=== PATIENT | female | born 1970 | race Caucasian/White ===

== ENCOUNTER 2020-03-25 09:39 | Outpatient (CLI) | payer BC, SELFPAY ==
--- NOTE | ~2020-03-25 | MM_ITS ---
EXAMINATION: MM screening tanya BI w blayne HISTORY: Screening TECHNIQUE: Craniocaudal and mediolateral oblique 3-D tomosynthesis images were obtained and synthetic 2-D images were generated. CAD analysis was submitted and interpreted. COMPARISON: Comparison to multiple prior studies sequentially, with oldest reviewed study dated 01/10. BREAST PARENCHYMAL COMPOSITION: There are scattered areas of fibroglandular density. FINDINGS: There is no evidence of suspicious mass, calcification, or architectural distortion to sugg est malignancy in either breast. There has been no suspicious interval change. IMPRESSION: 1. No mammographic evidence of malignancy. 2. Recommend routine screening mammography in one year. BI-RADS Category 1: Negative Reviewed, dictated and finalized at location A. S DEVELOPMENT COORDINATOR
== END 2020-03-25 09:40 | disposition home or self-care (01) ==
LOC: ANHIMG 09:45
PROVIDERS: PCP Internal Medicine Gastroenterology; Visit Provider Obstetrics & Gynecology
DX: Z12.31 Encounter for screening mammogram for malignant neoplasm of breast (principal)
CPT/HCPCS: 77063; 77067

== ENCOUNTER 2021-05-10 09:12 | Outpatient (CLI) | payer OTHER, SELFPAY ==
--- NOTE | ~2021-05-10 | MM_ITS ---
EXAMINATION: MM screening [facility] BI w blayne HISTORY: Screening mammogram TECHNIQUE: Craniocaudal and mediolateral oblique 3-D tomosynthesis images were obtained and synthetic 2-D images were generated. CAD analysis was submitted and interpreted. COMPARISON: 03/25/2020, 08/30/2017, 08/24/2017, 07/18/2016 BREAST PARENCHYMAL COMPOSITION: The breasts are heterogeneously dense, which may obscure small masses . FINDINGS: There is no evidence of suspicious mass, calcification, or architectural distortion to sugg est malignancy in either breast. There has been no suspicious interval change. IMPRESSION: 1. No mammographic evidence of malignancy. 2. Recommend routine screening mammography in one year. BI-RADS Category 1: Negative Reviewed, dictated and finalized at location A. TECHNICAL LEAD
== END 2021-05-10 09:13 | disposition home or self-care (01) ==
PROVIDERS: PCP Internal Medicine Gastroenterology; Visit Provider Obstetrics & Gynecology
DX: Z12.31 Encounter for screening mammogram for malignant neoplasm of breast (principal)
CPT/HCPCS: 77063; 77067

== ENCOUNTER 2023-02-08 13:09 | Outpatient (CLI) | payer MEDICARE, MEDICAID, SELFPAY ==
--- NOTE | ~2023-02-08 | XR_ITS ---
Thoracic spine: Clinical Indication: Back pain, radiculopathy AP and lateral views were performed. No fracture is seen. There is normal alignment of the vertebrae. The intervertebral disc spaces appe ar normal. Paravertebral soft tissues appear normal. Impression: No significant abnormalities noted. Reviewed, dictated and finalized at [facility]. IAC REHABILITATION SPECIALIST Impression: No significant abnormalities noted.
--- NOTE | ~2023-02-08 | XR_ITS ---
Lumbosacral Spine: AP and lateral views Clinical History: Pain Findings: The normal lordotic curve is maintained. 5 mm anterolisthesis of L4 over L5 present. There are mild facet joint degenerative change at the lower lumbar spine. The sacroiliac joints are normall y outlined. Impression: 5 mm anterolisthesis of L4 over L5. Mild facet arthropathy of the lower lumbar spine. Reviewed, dictated and finalized at location M. DIAL PROJECT MANAGER Impression: 5 mm anterolisthesis of L4 over L5. Mild facet arthropathy of the lower lumbar spine.
--- NOTE | ~2023-02-08 | XR_ITS ---
EXAMINATION: XR shoulder RT min 2V DATE: 02/08/2023 14:32 INDICATION: Right shoulder pain. TECHNIQUE: 4 views of right shoulder were obtained. COMPARISON: None. FINDINGS: Bone alignment is normal. No fracture. There is mild osteoarthritis of glenohumeral joint a nd acromioclavicular joint. IMPRESSION: 1. Mild polyarticular osteoarthritis. Reviewed, dictated and finalized at location A. DOG TRAINER
--- NOTE | ~2023-02-08 | XR_ITS ---
EXAMINATION: XR shoulder LT min 2V DATE: 02/08/2023 14:32 INDICATION: Left shoulder pain. TECHNIQUE: 4 views of left shoulder were obtained. COMPARISON: None. FINDINGS: Bone alignment is normal. No fracture. There is mild osteoarthritis of glenohumeral joint a nd acromioclavicular joint. IMPRESSION: 1. Mild polyarticular osteoarthritis. Reviewed, dictated and finalized at location A. ER TIRE AND TUBES SUPERVISOR
--- NOTE | ~2023-02-08 | XR_ITS ---
Cervical Spine: AP, lateral, open-mouth views Clinical History: Pain Findings: The normal lordotic curve is maintained. The vertebral bodies and posterior elements appea r intact. The intervertebral disc spaces are well maintained. Pre-vertebral soft tissues are unremar kable. Impression: No significant abnormality is seen. Reviewed, dictated and finalized at [facility]. [employer] SERVICE TEAM MEMBER Impression: No significant abnormality is seen.
== END 2023-02-08 13:10 | disposition home or self-care (01) ==
PROVIDERS: PCP Internal Medicine Gastroenterology; Visit Provider Pain Medicine Interventional Pain Medicine
DX: M54.16 Radiculopathy, lumbar region (principal); M54.14 Radiculopathy, thoracic region; M54.12 Radiculopathy, cervical region; M19.012 Primary osteoarthritis, left shoulder; M19.011 Primary osteoarthritis, right shoulder
CPT/HCPCS: 72050; 72072; 72100; 73030

== ENCOUNTER 2023-03-04 10:32 | Outpatient (CLI) | payer MEDICARE, MEDICAID, SELFPAY ==
--- NOTE | ~2023-03-04 | MR_ITS ---
EXAMINATION: MR shoulder LT wo con DATE: 03/04/2023 11:19 INDICATION: Left shoulder pain. TECHNIQUE: Magnetic resonance imaging (MRI) of the left shoulder was performed without intravenous co ntrast. Sequences included axial PD-weighted FS FSE, coronal oblique PD-weighted FS FSE and T2-weight ed FS FSE, and sagittal oblique T2-weighted FS FSE and T1-weighted FSE. COMPARISON: Left shoulder radiographs 02/08/2023 FINDINGS: Coracoacromial arch: The acromion undersurface is curved in morphology (type II). There is moderate acromioclavicular join t osteoarthritis. There is mild subacromial/subdeltoid bursitis. Rotator cuff: There is mild supraspinatus and infraspinatus tendinopathy. Teres minor tendon is normal. Subscapular is tendon is normal. There is no asymmetric fatty atrophy of the rotator cuff muscle bellies. Biceps tendon and glenoid labrum: Biceps tendon is in bicipital groove. Intra-articular biceps tendon is normal. The glenoid labrum is normal. Fluid: There is a small glenohumeral joint effusion. Bones/cartilage: There is cartilage surface irregularity of glenoid and humeral head. IMPRESSION: 1. Mild rotator cuff tendinopathy. No tear. 2. Mild glenohumeral joint chondrosis. 3. Moderate acromioclavicular joint osteoarthritis. 4. Small glenohumeral joint effusion. 5. Mild subacromial/subdeltoid bursitis. Reviewed, dictated and finalized at location E. MAN CAR REPAIRER
== END 2023-03-04 10:33 | disposition home or self-care (01) ==
LOC: ANHIMG 10:37
PROVIDERS: PCP Internal Medicine Gastroenterology; Visit Provider Pain Medicine Interventional Pain Medicine
DX: F33.1 Major depressive disorder, recurrent, moderate (principal); M47.22 Other spondylosis with radiculopathy, cervical region; M47.26 Other spondylosis with radiculopathy, lumbar region; M47.23 Other spondylosis with radiculopathy, cervicothoracic region; M47.25 Other spondylosis with radiculopathy, thoracolumbar region; M47.27 Other spondylosis with radiculopathy, lumbosacral region; M25.411 Effusion, right shoulder; M19.011 Primary osteoarthritis, right shoulder; M75.51 Bursitis of right shoulder
CPT/HCPCS: 73221

== ENCOUNTER 2023-11-20 11:13 | Outpatient (CLI) | payer MEDICARE, MEDICAID, SELFPAY ==
--- NOTE | ~2023-11-20 | US_ITS ---
EXAMINATION: US transvaginal DATE: 11/20/2023 12:18 INDICATION: Postmenopausal bleeding TECHNIQUE: Multiple transabdominal and endovaginal sonographic images of the pelvis were obtained. COMPARISON: None. FINDINGS: The uterus measures 6.5 x 3.4 x 5.0 cm. The endometrial complex measures 4-5 mm in thickness. 5 mm a nechoic nabothian cyst at the cervix. Along the posterior margin of the uterus fundus is a 1.4 x 1.2 x 0.9 hypoechoic lesion with internal vascular flow with arterial waveforms on color Doppler which co uld represent either the right ovary or a small subserosal fibroid. The left ovary is not visualized. There is no free fluid in the pelvis. IMPRESSION: 1. Borderline thickening of the endometrial complex for postmenopausal state which measures 4-5 mm. 2. 1.4 x 1.2 x 0.9 cm hypoechoic right ovary versus subserosal fibroid along the posterior uterine fu ndus. Reviewed, dictated and finalized at location B. IMPRESSION: 1. Borderline thickening of the endometrial complex for postmenopausal state wh ich measures 4-5 mm. 2. 1.4 x 1.2 x 0.9 cm hypoechoic right ovary versus subserosal fibroid along th e posterior uterine fundus.
== END 2023-11-20 11:14 | disposition home or self-care (01) ==
LOC: ANHIMG 11:21
PROVIDERS: PCP Internal Medicine Gastroenterology
DX: N95.0 Postmenopausal bleeding (principal)
CPT/HCPCS: 76830

== ENCOUNTER 2024-03-11 10:02 | Outpatient (CLI) | payer MEDICARE, MEDICAID, SELFPAY ==
--- NOTE | ~2024-03-11 | MM_ITS ---
EXAMINATION: MM screening tanya BI w blayne HISTORY: Screening mammogram TECHNIQUE: Craniocaudal and mediolateral oblique 3-D tomosynthesis images were obtained and synthetic 2-D images were generated. CAD analysis was submitted and interpreted. COMPARISON: 05/10/2021, 03/25/2020 BREAST PARENCHYMAL COMPOSITION:Not Dense. There are scattered areas of fibroglandular density. FINDINGS: No suspicious mass, calcification, or architectural distortion are identified in either clari ast to suggest malignancy. There has been no suspicious interval change. IMPRESSION: No mammographic evidence of malignancy. Recommend routine screening mammography in one year. BI-RADS Category 1: Negative Reviewed, dictated and finalized at location . ALLER APPRENTICE
== END 2024-03-11 10:03 | disposition home or self-care (01) ==
PROVIDERS: PCP Internal Medicine Gastroenterology
DX: Z12.31 Encounter for screening mammogram for malignant neoplasm of breast (principal)
CPT/HCPCS: 77063; 77067

== ENCOUNTER 2024-07-15 12:44 | Outpatient (CLI) | payer MEDICARE, MEDICAID, SELFPAY ==
--- NOTE | ~2024-07-15 | XR_ITS ---
Right Shoulder Technique: AP and scapular Y views were obtained. Clinical History: Pain Findings: No fracture or dislocation is seen. Osseous alignment is anatomic. The glenohumeral and acr omioclavicular joint spaces are preserved. Soft tissues are unremarkable. Impression: Unremarkable right shoulder radiographs. Reviewed, dictated and finalized at [facility]. Impression: Unremarkable right shoulder radiographs.
--- NOTE | ~2024-07-15 | XR_ITS ---
3 VIEWS THORACIC SPINE Ordering provider: Sunil Sánchez, History: . Radiculopathy, CHRONIC PAIN . Comparison: None. FINDINGS: VERTEBRAL BODIES: Normal height and alignment. No visible fracture or subluxation. Degenerative traore es of the spine. DISK SPACES: Multilevel degenerative disc disease in the midthoracic area. SOFT TISSUES: Normal. IMPRESSION: No acute osseous abnormality of the thoracic spine. Multilevel degenerative disc disease. Reviewed, dictated and finalized at location A.
--- NOTE | ~2024-07-15 | XR_ITS ---
Cervical Spine: AP, lateral, open-mouth views Clinical History: Pain Findings: The normal lordotic curve is maintained. The vertebral bodies and posterior elements appea r intact. The intervertebral disc spaces are well maintained. Mild facet arthropathy present in the cervical spine. Pre-vertebral soft tissues are unremarkable. Impression: Mild facet arthropathy. Reviewed, dictated and finalized at location . Impression: Mild facet arthropathy.
--- NOTE | ~2024-07-15 | XR_ITS ---
Lumbosacral Spine: AP and lateral views Clinical History: Pain Findings: The normal lordotic curve is maintained. No fracture seen. There is 8 mm anterolisthesis of L4 over L5. There is mild degenerative disc narrowing at L4-L5. There is severe facet arthropathy fr om L4 through S1. The sacroiliac joints are normally outlined. Impression: 8 mm anterolisthesis of L4 over L5. Degenerative spondylosis of the lower lumbar spine, as detailed above. Reviewed, dictated and finalized at location M. Impression: 8 mm anterolisthesis of L4 over L5. Degenerative spondylosis of the lower lumbar spine, as detailed above.
--- NOTE | ~2024-07-15 | XR_ITS ---
Left Shoulder Technique: AP and scapular Y views were obtained. Clinical History: Pain Findings: No fracture or dislocation is seen. Osseous alignment is anatomic. The glenohumeral and acr omioclavicular joint spaces are preserved. Soft tissues are unremarkable. Impression: Unremarkable left shoulder radiographs. Reviewed, dictated and finalized at [facility]. Impression: Unremarkable left shoulder radiographs.
--- OUTSIDE RECORDS SUMMARY | 2024-07-15 13:00 | XMS_ITS | Referral Summary ---
Author Organization [facility] Address [address] [place] [address] Care Team Providers Care Blanket Winder Operator Name Role Phone Katrina Trevino RISK MANAGER Unavailable [phone] Shubham Schroeder MD Primary Care Provider Social History Tobacco Use Types Packs/Day Years Used Date Smoking Tobacco: Never Assessed Personal Safety Answer Date Recorded Getting School Help Needed Not on file 05/24 Comments Unknown Sex and Gender Information Value Date Recorded Sex Assigned at Not on file Legal Sex Female 5:17 AM BONE CHAR KILN TENDER Gender Identity Not on file Sexual Orientation Not on file Last Filed Vital Signs Vital Sign Reading Time Taken Comments Blood Pressure - - Pulse - - Temperature - - Respiratory Rate - - Oxygen Saturation - - Inhaled Oxygen Concentration - - Weight 90.7 kg (200 lb) 10/04/2023 9:28 AM CDT Height 170.2 cm (5' 7 ) 10/04/2023 9:28 AM CDT Body Mass Index 31.32 10/04/2023 9:28 AM CDT Plan of Treatment Not on file Procedures Procedure Name Priority Date/Time Associated Diagnosis Comments CT LUNG CANCER SCREENING Schedule Routine, Read Routine (OP Routine) 10/04/2023 9:27 AM CDT Nicotine dependence, cigarettes, in remission from Last 3 Months or Most Recently Relevant to Health Maintenance Results * CT Lung Cancer Screening (10/04/2023 9:27 AM CDT) Anatomical Region Laterality Modality Chest N/A Computed Tomogra phy 10/04/2023 11:0 0 AM CDT Narrative 10/04/2023 11:07 AM CDT EXAM DESCRIPTION: CT LUNG CANCER SCREENING REASON FOR STUDY: Screening CT of the chest in a former smoker with a 34 pack year smoking history. Additional history: None. TECHNIQUE: Low dose CT scan of the chest was performed without intravenous contrast using helical scanning technique. The exam extends from the lung apices through the lung bases. Automatic exposure control was used as a dose optimization technique. NOTE: This study was performed for the specific purposes of lung cancer screening and is not an alternative to diagnostic chest CT. RADIATION DOSE: CT dose index volume (CTDIvol) = 2.19 mGy COMPARISON: None FINDINGS: SMOKING RELATED LUNG DISEASE: There are minimal to mild emphysematous changes of lungs with scattered mild subsegmental atelectasis and scarring. There is minimal left apical pleural thickening and scarring. There is no definite evidence of a pneumothorax. The central airways are grossly patent. There is scattered subtle mild bronchial wall thickening, which is likely related to mild chronic bronchitis/bronchiolitis. There is no definite evidence of focal consolidation. There are trace bilateral pleural effusions, which is greater on the left than the right. LUNG NODULES: There is a subtle subpleural 0.2 cm pulmonary nodule in the posterior right lower lobe (axial image 178). There is a 0.4 cm pulmonary nodule in the anterior left upper lobe (axial image 47). CORONARY ARTERY CALCIFICATION: Not identified. OTHER: The heart size is normal. There is a small pericardial effusion. There are mild atherosclerotic changes of the thoracic aorta. There is no definite unenhanced CT evidence of mediastinal, hilar, or axillary lymphadenopathy. There is a small hiatal hernia. The right adrenal gland is grossly unremarkable. There is mild nonspecific nodularity of the left adrenal gland. There is mild diffuse hepatic steatosis. There are degenerative changes of the spine. IMPRESSION: Couple of scattered small pulmonary nodules with the largest measuring 0.4 cm in the left upper lobe. Minimal to mild emphysematous changes of lungs with scattered mild subsegmental atelectasis and scarring. Scattered subtle mild bronchial wall thickening, which is likely related to mild chronic bronchitis/bronchiolitis. Trace bilateral pleural effusions, which is greater on the left than the right. Small pericardial effusion. Mild diffuse hepatic steatosis. Lung-RADS category 2: Benign appearance or behavior. Recommendation: Low dose Screening CT of chest in 12 months. THIS IS AN ELECTRONICALLY VERIFIED FINAL REPORT 10/04/2023 11:07 AM - Electronically signed by Jesika Ovalle D.O. PS T: Report ID: [id number] Reading Location: [id number] Procedure Note Jesika Ovalle, DO - 10/04/2023 EXAM DESCRIPTION: CT LUNG CANCER SCREENING REASON FOR STUDY: Screening CT of the chest in a former smoker with a34 pack year smoking history. Additional history: None. TECHNIQUE: Low dose CT scan of the chest was performed without intravenous contrast using helical scanning technique. The exam extends from the lung apices through the lung bases. Automatic exposure control was used as adose optimization technique. NOTE: This study was performed for the specific purposes of lung cancer screening and is not an alternative to diagnostic chest CT. RADIATION DOSE: CT dose index volume (CTDIvol) = 2.19 mGy COMPARISON: None FINDINGS: SMOKING RELATED LUNG DISEASE: There are minimal to mild emphysematous changes of lungs with scattered mild subsegmentalatelectasis and scarring. There is minimal left apical pleural thickening andscarring. There is no definite evidence of a pneumothorax. The central airways are grossly patent. There is scattered subtle mild bronchial wall thickening, which is likely related to mild chronic bronchitis/bronchiolitis. Thereis no definite evidence of focal consolidation. There are trace bilateralpleural effusions, which is greater on the left than the right. LUNG NODULES: There is a subtle subpleural 0.2 cm pulmonary nodule inthe posterior right lower lobe (axial image 178). There is a 0.4 cm pulmonary nodule in the anterior left upper lobe (axial image 47). CORONARY ARTERY CALCIFICATION: Not identified. OTHER: The heart size is normal. There is a small pericardial effusion. There are mild atherosclerotic changes of the thoracic aorta. There is no definite unenhanced CT evidence of mediastinal, hilar, oraxillary lymphadenopathy. There is a small hiatal hernia. The right adrenal gland is grossly unremarkable. There is mild nonspecific nodularity of the left adrenalgland. There is mild diffuse hepatic steatosis. There are degenerative changes of the spine. IMPRESSION: Couple of scattered small pulmonary nodules with the largest measuring0.4 cm in the left upper lobe. Minimal to mild emphysematous changes of lungs with scattered mild subsegmental atelectasis and scarring. Scattered subtle mild bronchial wall thickening, which is likely relatedto mild chronic bronchitis/bronchiolitis. Trace bilateral pleural effusions, which is greater on the left than the right. Small pericardial effusion. Mild diffuse hepatic steatosis. Lung-RADS category 2: Benign appearance or behavior. Recommendation: Low dose Screening CT of chest in 12 months. THIS IS AN ELECTRONICALLY VERIFIED FINAL REPORT 10/04/2023 11:07 AM - Electronically signed by Jesika Ovalle D.O. PS T: Report ID: [id number] Reading Location: [id number] Fátima Pinto MD IMG CT PROCEDURES Final Res ult from Last 3 Months or Most Recently Relevant to Health Maintenance Insurance [facility] MEDICARE ADVANTAGE Care Teams Blanket Winder Operator Relationship Specialty Start Date End Date Shubham Schroeder MD [address] [place] [phone] PCP - General Gastroenterology 09/07/23 Katrina Trevino NP [address] [place] [id number] Nurse Practitioner Nurse Practitioner 01/20/22
--- OUTSIDE RECORDS SUMMARY | 2024-07-15 13:00 | XMS_ITS | Clinical Summary ---
Author Organization [facility] Address [address] [place] [id number] Care Team Providers Care Terrazzo Tile Setter Name Role Phone Katrina Trevino NP Unavailable [phone] Shubham Schroeder MD Primary Care Provider Social History Tobacco Use Types Packs/Day Years Used Date Smoking Tobacco: Never Assessed Personal Safety Answer Date Recorded Getting School Help Needed Not on file 05/24 Comments Unknown Sex and Gender Information Value Date Recorded Sex Assigned at Not on file Legal Sex Female 5:17 AM DIGITAL MARKETING ASSISTANT Gender Identity Not on file Sexual Orientation [...] 10/04/2023 9:28 AM CDT Plan of Treatment Health Maintenance Due Date Last Done Comments Breast Cancer Screening-Mammogram 1968 Cervical Cancer Screening 1968 Colon Cancer Screening-Colonoscopy 1968 Depression Screening 1968 Hepatitis C Screening 1968 DTaP/Tdap/Td Vaccine (1 - Tdap) 05/22/1979 Hepatitis B Screening 1986 Regular Well Visit/Exam 18-64 1986 Zoster Vaccine (1 of 2) 2018 Lung Cancer Screening 10/04/2024 10/04/2023 Influenza Vaccine (Season Ended) 2024 Pneumococcal vaccine <65 Aged Out No longer eligible based on patient's age to complete this topic Procedures Procedure Name Priority Date/Time Associated Diagnosis [...] 11:07 AM - Electronically signed by Jesika COONEY T: Report ID: [id number] Reading Location: [place] [address] Procedure Note Jesika Ovalle, DO - 10/04/2023 [...] Jesika Ovalle D.O. PS T: Report ID: [id number] Reading Location: [place] [address] Fátima Pinto MD IM CT PROCEDURES Final Res ult from Last 3 Months or Most Recently Relevant to Health Maintenance Insurance [place], [place] [id number] [place] [address] [facility] MEDICARE ADVANTAGE [facility] MEDIC[facility] Address: [address] [address] Care Teams Terrazzo Tile Setter Relationship Specialty Start Date End Date Shubham Schroeder MD [address] [place] [id number] PCP - General Gastroenterology 09/07/23 Katrina Trevino NP [address] [place] [id number] Nurse Practitioner Nurse Practitioner 01/20/22
--- OUTSIDE RECORDS SUMMARY | 2024-07-15 13:00 | XMS_ITS | CONTINUITY OF CARE DOCUMENT ---
Author Name dang leong Address Unknown Organization [facility] Address [address] [place] [address] Phone [phone] Care Team Providers Care Trend Investigator Name Role Phone Ottoniel WALLACE, Frederick Unavailable [phone] DEANDRE WALLACE, CÉSAR Unavailable [phone] INSURANCE PROVIDERS Payer name Policy type / Coverage type [place] red democrat ID [facility] [id number]
--- OUTSIDE RECORDS SUMMARY | 2024-07-15 13:00 | XMS_ITS | Clinical Summary ---
Author Organization [facility] Address [facility] [place] [address] Care Team Providers Care Supervisor Sawing And Assembly Name Role Phone Unavailable Primary Care Provider Unavailabl e Social History Tobacco Use Types Packs/Day Years Used Date Smoking Tobacco: Never Assessed Comments Unknown Sex and Gender Information Value Date Recorded Sex Assigned at Not on file Legal Sex Female 6:08 PM CDT Gender Identity Not on file Sexual Orientation Not on file Plan of Treatment Health Maintenance Due Date Last Done Comments Cervical Cancer Screening Pa p Smear (Age 30 to 64) Every 3 Years 1968 Colorectal Cancer Screening Colonoscopy (10 Years) 1968 Annual Physical 05/22/1971 Hepatitis C 1986 DTaP, Tdap and Td Vaccines ( 1 - Tdap) 05/22/1987 Hepatitis B Vaccines (1 of 3 - 19+ 3-dose series) 05/22/1987 Cervical Cancer Screening Pa p with HPV Testing (Age 30 to 64) Every 5 Years 1998 Cervical Cancer Screening with HPV 1998 Mammogram Screening 2008 Pneumococcal Vaccine: 50+ Ye ars (1 of 1 - PCV) 2018 Zoster Vaccines (1 of 2) 2018 COVID-19 Vaccine (2023-2 5 season) 2023 Meningococcal B Vaccine Aged Out No l onger eligible based on patient's age to complete this topic Meningococcal Vaccine Aged Out No phoenix sawyer eligible based on patient's age to complete this topic RSV Immunizations Under 20 Months Aged Out No longer eligible based on patient's age to complete this topic
== END 2024-07-15 12:45 | disposition home or self-care (01) ==
PROVIDERS: PCP Internal Medicine Gastroenterology; Visit Provider Pain Medicine Interventional Pain Medicine
DX: M47.892 Other spondylosis, cervical region (principal); M43.16 Spondylolisthesis, lumbar region; M47.896 Other spondylosis, lumbar region; M51.34 Other intervertebral disc degeneration, thoracic region; M25.512 Pain in left shoulder; M25.511 Pain in right shoulder
CPT/HCPCS: 72040; 72072; 72100; 73030